=== PATIENT | male | born 1995 | race Caucasian/White ===

== ENCOUNTER 2019-01-27 16:49 | Emergency (ER) | payer OTHER ==
--- NOTE | 2019-01-27 18:01 | RAD ---
PA AND LATERAL CHEST: History: Chest pain and shortness of breath. FINDINGS: Heart size and mediastinum are within normal limits. The lungs are clear of infiltrates. No significa nt bony findings. IMPRESSION: No active intrathoracic disease. POS: [facility]
== END 2019-01-27 17:37 | disposition home or self-care (01) ==
LOC: SCSER 16:49
DX: R07.9 Chest pain, unspecified (principal); F90.9 Attention-deficit hyperactivity disorder, unspecified type; F17.290 Nicotine dependence, other tobacco product, uncomplicated
CPT/HCPCS: 71046; 93005